=== PATIENT | female | born 1985 | race Caucasian/White ===

== ENCOUNTER 2019-09-23 03:02 | Outpatient (CLI) | payer OTHER, SELFPAY ==
[2019-09-24 20:06] LABS: SARS-CoV-2 RNA PCR Negative
== END 2019-09-23 03:03 | disposition home or self-care (01) ==
LOC: ANHCOVIDDT 03:02
PROVIDERS: PCP Family Medicine Adolescent Medicine; Visit Provider Plastic Surgery
DX: Z01.818 Encounter for other preprocedural examination (principal); Z11.59 Encounter for screening for other viral diseases
CPT/HCPCS: 87635; C9803; U0003

== ENCOUNTER 2019-09-25 02:21 | Day surgery (SDC) | payer OTHER, SELFPAY ==
[2019-09-16 14:00] VITALS: BMI 26.9
--- NOTE | 2019-09-24 12:46 | WPDANESEPPF ---
Anes - Initial Pre Proc Eval Procedure: Operation Date: 09/25/19 07:30 Proposed Procedures p Right Open Carpal Tunnel Release - Bryan Cabrales MD Date/Time: 09/24/19 12:46 Surgeon: Bryan Cabrales MD Pre Op Diagnosis: Right Carpal Tunnel Syndrome Patient Data Age: 34 Gender: F Height: 1.6 m Weight: 69.09 kg Allergies Allergy/AdvReac Type Severity Reaction Status Date / Time No Known Allergies Allergy Unknown Unverified 09/25/19 06:21 Home Medications Medication Instructions Recorded Confirmed Type levothyroxine 75 mcg PO DAILY 09/16/19 09/25/19 History Patient hx anesthesia problems: none Family hx anesthesia problems: none [facility] Past Medical History Medical History (Updated 09/24/19 @ 12:47 by Db Cook MD) Hypothyroidism Overweight (BMI 25.0-29.9) Surgical History Surgical History (Updated 09/24/19 @ 12:47 by Db Cook MD) Hx of cholecystectomy Hx of tubal ligation Social History Social History Smoking status: Current every day smoker Tobacco type: cigarettes Second hand tobacco smoke exposure: Yes Alcohol intake: never Substance use: never Living arrangements: with family Spiritual care concerns: No Anes - Eval Final PreProcedure Day of Procedure 09/24/19 12:46 Patient weight: overweight Heart: regular rate and rhythm Lungs: clear to auscultation and normal air movement Airway: Mallampati scale class II Neurological: alert and oriented Last oral intake: >/= 8 hours ASA classification: II Emergent: no Anesthetic plan: proceed Anesthesia type and monitoring: general GIVS and LMA Informed Consent: The patient's anesthetic plan and its attendant risks and benefits were discussed with the patient/family/POA. Questions were solicited and answers provided to the satisfaction of the patient/family/POA.
--- NOTE | 2019-09-24 22:13 | HP_ITS ---
DATE OF SERVICE: 09/25/2019 PREOPERATIVE DIAGNOSIS: Right carpal tunnel syndrome. HISTORY: The patient is 34. She was initially evaluated on , giving a history of 2 years involving pain and numbness in her right hand, particularly the middle finger. She frequently drops things. She is awakened at night. 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 She has cramping in the hand and all of this interferes with tasks of daily living. She has consented to surgery understanding there is a potential risk of scarring, hematoma, infection, wound dehiscence, recurrence, tendon or nerve injury. She would like to proceed. PAST MEDICAL HISTORY: She uses Synthroid. ALLERGIES: SHE HAS NO KNOWN ALLERGIES TO MEDICATION. PAST SURGICAL HISTORY: She has had a cholecystectomy and a tubal ligation in 2017 and 2019 respectively. She continues to be a smoker. REVIEW OF SYSTEMS: Indicates that she has some thyroid problem. . FAMILY HISTORY: Noncontributory. SOCIAL HISTORY: She lives in [place]. She does not list employment. She is a patient of Dequan Lopez. PHYSICAL EXAMINATION: GENERAL: She is listed at 5 feet 3 inches, 155 pounds. She is alert and informative, is in no acute distress. HEENT: Unremarkable. CHEST: Clear to auscultation. HEART: Regular rate and rhythm by palpation. ABDOMEN: Soft and nontender. EXTREMITIES: Exam reveals multiple positives including thenar tenderness and Tinel's at the wrist and wrist compression test with numbness. ASSESSMENT: Right carpal tunnel syndrome. PLAN: Right open carpal tunnel release under MAC anesthetic. She says she can tolerate hydrocodone. D I MT: Jose
[2019-09-25 06:15] VITALS: BP 112/69; PULSE 80; RESP 20; TEMP 36.7; O2SAT 100
[2019-09-25] MEDS: LACTATED RINGERS 1,000 ML 30 ML IV CONT (06:53)
--- NOTE | 2019-09-25 07:13 | WPDHPUPDATE1 ---
History and Physical Update Update Date/Time: 09/25/19 07:13 History and Physical has been reviewed, including an updated exam of the patient. There are NO changes in the patient's condition. Risks, benefits, and alternatives have been discussed and questions answered. Patient agrees to proceed with procedure.
[2019-09-25] MEDS: LIDO 1%/EPINEPHRINE 1:100,000 20 ML VIAL INFILTRATE (07:39)
--- NOTE | 2019-09-25 07:47 | P.OPB_ITS ---
Procedure Note - Brief Procedure Note - Brief Date of procedure: 09/25/19 Pre-op diagnosis: Right Carpal Tunnel Syndrome Post-op diagnosis: same Procedure performed: R OCTR Anesthesia: MAC Surgeon: Bryan Cabrales MD Wireless Retail Manager: Kaelyn Estimated blood loss (mL): 3 Tourniquet time (min): 5 Drains: No Packing: No Pathology: none sent Complications: No immediate complications Condition: stable Disposition: same day
[2019-09-25 07:50] VITALS: BP 98/63; PULSE 73; RESP 16
[2019-09-25 08:20] VITALS: BP 101/59; PULSE 63; RESP 16; O2SAT 97
[2019-09-25 08:50] VITALS: BP 102/62; PULSE 68; RESP 62
--- NOTE | 2019-09-25 10:23 | PM.PROC ---
Procedure Note - Detailed Date of procedure: 09/25/19 Pre-op diagnosis: Right Carpal Tunnel Syndrome Post-op diagnosis: same Procedure performed: Right open carpal tunnel release Description of procedure: the appropriate hand was marked while the patient was in the holding area. She was taken to the operating room and placed supine on the operating table. A time-out was held and confirmed. She was given IV sedation as the extremity was prepped and draped in usual fashion. The site was remarked and locally infiltrated with 1% lidocaine with epinephrine. The tourniquet was inflated to 250 mmHg. The incision was made in the palm as marked. Blunt dissection revealed the palmar fascia. This was incised with a 15. Blade entering the canal. Under 3 point retraction the carpal ligament was incised distally and proximally to completely release it. There was no unusual anatomy noted. The wound was closed with interrupted 5 0 nylon suture. The usual bandage was applied tourniquet was released and she was discharged home with instructions in wound care and follow-up. She has a prescription for hydrocodone /APAP . Surgeon: Bryan Cabrales MD
== END 2019-09-25 08:57 | disposition home or self-care (01) ==
PROVIDERS: PCP Family Medicine Adolescent Medicine; Visit Provider Plastic Surgery
PROC: (CPT 64721; principal; 2019-09-25 07:30)
DX: G56.01 Carpal tunnel syndrome, right upper limb (principal); E03.9 Hypothyroidism, unspecified; F17.210 Nicotine dependence, cigarettes, uncomplicated
CPT/HCPCS: 64721; A9270; J2250; J2704; J3010; J7120

== ENCOUNTER 2019-10-04 13:33 | Emergency (ER) | payer OTHER, SELFPAY ==
--- NOTE | ~2019-10-04 | XR_ITS ---
EXAMINATION: XR foot LT min 3V DATE: 10/04/2019 13:58 INDICATION: Left foot pain, initial encounter TECHNIQUE: Dorsoplantar, lateral, and 2 oblique views of the left foot were obtained. COMPARISON: None. FINDINGS: There is an acute, traumatic, comminuted fracture of the fifth proximal phalanx. Soft tissu e swelling surrounds the fracture. No additional acute osseous findings are evident. The joint spaces are maintained. IMPRESSION: 1. Acute fifth proximal phalanx fracture with surrounding soft tissue swelling. Reviewed, dictated and finalized at location B.
[2019-10-04 13:43] VITALS: BP 128/76; PULSE 89; RESP 16; TEMP 37.3; O2SAT 98
--- NOTE | 2019-10-04 13:44 | ED.GENADULT ---
HPI - General Adult General Chief complaint: Extremity Injury, Lower Stated complaint: injury left foot pain Source: patient and RN notes reviewed Mode of arrival: ambulatory Limitations: no limitations History of Present Illness HPI narrative: This is a 34 years old female presents to the office for an evaluation of left foot injury since this morning. She accidentally dropped a heavy object on her left foot at around 7am this morning. Pain is getting worse overtime. Pain is worse when she walks/moves her toes. She took tylenol and tramadol for pain. She recently had carpal tunnel surgery for her right hand. Denies any other injurys. Related Data Home Medications Medication Instructions Recorded Confirmed levothyroxine 75 mcg PO DAILY 09/16/19 09/25/19 Allergies Allergy/AdvReac Type Severity Reaction Status Date / Time No Known Allergies Allergy Unknown Unverified 09/25/19 06:21 Review of Systems Review of Systems: Narrative: CONSTITUTIONAL: Denies fever ENT: Denies rhinorrhea, congestion, sore throat, otalgia. CARDIOVASCULAR: Denies chest pain, palpitation RESPIRATORY: Denies dyspnea, wheezing, cough GASTROINTESTINAL: Denies abdominal pain, nausea, vomiting, diarrhea. SKIN: Denies rash/skin abrasion/laceration MUSCULOSKELETAL: Reports right foot injury and swelling. NEUROLOGIC: Denies lightheaded All other systems reviewed are negative, except as documented in HPI. PMFSH Past Medical History Medical History Hypothyroidism Overweight (BMI 25.0-29.9) Surgical History Surgical History Hx of cholecystectomy Hx of tubal ligation Social History Social History Smoking status: Current every day smoker Tobacco type: cigarettes Second hand tobacco smoke exposure: Yes Alcohol intake: never Substance use: never Spiritual care concerns: No Comments At time of signature, I agree with nursing past medical, surgical, social and family history. There is no relevant family history pertinent to the presenting complaint. Exam Narrative: Exam Narrative: GENERAL: This is a well-nourished, well-developed patient, in no apparent distress. CARDIOVASCULAR: Regular rate and rhythm without murmurs, gallops, or rubs. RESPIRATORY: Clear to auscultation. Breath sounds equal bilaterally. No wheezes, rales, or rhonchi. GASTROINTESTINAL: Abdomen soft, non-tender, nondistended. Bowel sounds are active. No hepato-splenomegaly, or palpable masses. No guarding. SKIN: warm, intact with no suspicious lesions or rash, good texture and turgor. NEURO: awake, alert, and oriented to person, place and time. There were no obvious focal neurologic abnormalities. Steady gait EXTREMITIES: Affected lateral ankle not swollen but there is tenderness and swelling over the dorsum of the foot at the fifth metartarsal. Range of motion limited secondary to pain. No deformity. The skin is intact. Natalia Coma Scale Eye Opening: Spontaneous 4 Mckinney Coma Scale Motor: Obeys Commands 6 Mckinney Coma Scale Verbal: Oriented 5 Course Vital Signs Vital signs: Vital Signs Temperature 99.1 F 10/04/19 13:43 Pulse Rate 89 10/04/19 13:43 Respiratory Rate 16 10/04/19 13:43 Blood Pressure 128/76 10/04/19 13:43 Pulse Oximetry 98 10/04/19 13:43 Temperature 99.1 F 10/04/19 13:43 Pulse Rate 89 10/04/19 13:43 Respiratory Rate 16 10/04/19 13:43 Blood Pressure 128/76 10/04/19 13:43 Pulse Oximetry 98 10/04/19 13:43 Medical Decision Making MDM Narrative Medical decision making narrative: Discharge instructions reviewed with patient, as well as provided in writing per nursing staff. The instructions also include specific and strict return/GO TO THE ER as well as f/u information. All questions have been answered, and the patient deny any further questio
== END 2019-10-04 14:09 | disposition home or self-care (01) ==
PROVIDERS: Emergency Provider Nurse Practitioner; PCP Family Medicine Adolescent Medicine
DX: S92.515A Nondisplaced fracture of proximal phalanx of left lesser toe(s), initial encounter for closed fracture (principal); W20.8XXA Other cause of strike by thrown, projected or falling object, initial encounter; E03.9 Hypothyroidism, unspecified
CPT/HCPCS: 73630; 99213; G0463

== ENCOUNTER 2020-03-29 12:58 | Emergency (ER) | payer OTHER, SELFPAY ==
--- NOTE | 2020-03-29 13:03 | ED.GENADULT ---
HPI - General Adult General Chief complaint: Upper Respiratory Infection Stated complaint: sore throat Time Seen by Provider: 03/29/20 13:03 Source: patient Mode of arrival: ambulatory Limitations: no limitations History of Present Illness HPI narrative: 34-year-old female patient presents to the [facility] with complaints of a sore throat that started a little bit yesterday and is gotten increasingly worse today. Patient states that 2 of her children were diagnosed with strep last week. Patient states she has had strep before and tends to get it when her children do. Patient also reports that she has had some issues with her teeth and her supposed to be getting her teeth extracted but does have a little bit of dental pain to the bottom right side of the oral cavity. Patient states that the pain does radiate to the right ear. Denies any fevers, body aches or chills. Denies any coughing, chest pain or shortness of breath. Related Data Home Medications Medication Instructions Recorded Confirmed levothyroxine 75 mcg PO DAILY 03/29/20 03/29/20 Allergies Allergy/AdvReac Type Severity Reaction Status Date / Time No Known Allergies Allergy Unknown Verified 03/29/20 13:16 Review of Systems Review of Systems: Narrative: CONSTITUTIONAL: Denies fever, chills, or sweats. EYES: Denies visual changes, redness, or discharge. ENT: Denies rhinorrhea, congestion, positive sore throat, or otalgia. Positive right lower dental pain CARDIOVASCULAR: Denies chest pain, palpitations, or edema. RESPIRATORY: Denies cough or dyspnea. GASTROINTESTINAL: Denies abdominal pain, nausea, vomiting, or diarrhea. GENITOURINARY: Denies dysuria or hematuria. SKIN: Denies rash or itching. MUSCULOSKELETAL: Denies back pain, joint pain, or myalgia. NEUROLOGIC: Denies headache, numbness, or weakness. PSYCHIATRIC: Denies anxiety or depression. [facility] Past Medical History Medical History (Updated 03/29/20 @ 13:37 by EVELINE Jerome) History of calculus of gallbladder History of carpal tunnel syndrome Hypothyroidism Overweight (BMI 25.0-29.9) Surgical History Surgical History Hx of cholecystectomy Hx of tubal ligation Social History Social History (Reviewed 03/29/20 @ 13:03 by REINA Jerome Smoking status: Current every day smoker Tobacco type: cigarettes Second hand tobacco smoke exposure: Yes Alcohol intake: never Substance use: never Gender identity (if verbalized by the patient): Female Spiritual care concerns: No Comments At the time of my signature I agree with nursing past medical history, surgical, social, and family history. There is no relevant family history pertinent to the presenting complaint. Exam Narrative: Exam Narrative: GENERAL: Well-appearing, well-nourished, and in no acute distress. HEAD: Normocephalic, atraumatic. EYES: PERRLA and EOMI. ENT: Nares clear, no rhinorrhea or epistaxis. Mucous membranes moist. Posterior pharynx with some 2+ tonsil enlargement erythema noted to bilateral sides. Bilateral TMs are clear no erythema or foreign bodies in the canal. Patient does have some missing teeth to the bottom right gums with swelling and tenderness on palpation but no obvious abscess or drainage at this time. NECK: Supple. No lymphadenopathy CHEST: Clear to auscultation. No respiratory distress. HEART: Regular rate and rhythm. No murmur heard. Normal peripheral pulses. ABDOMEN: Soft, nontender, nondistended, normal active bowel sounds. EXTREMITIES: Normal range of motion. No edema. SKIN: Warm, dry, no rash. NEURO: No focal deficits. Alert and oriented x3. Course Reevaluation(s) Reevaluation #1: Reevaluated patient after her strep had resulted. Notified her that her bedside strep test is negative today. Discussed with patient that I am concerned that she might also have a dental infection therefore we will go ahead and discharge her home wit
[2020-03-29 13:26] VITALS: BP 124/69; PULSE 85; RESP 16; TEMP 36.8; O2SAT 99
== END 2020-03-29 13:40 | disposition home or self-care (01) ==
PROVIDERS: Emergency Provider Nurse Practitioner Family; PCP Family Medicine Adolescent Medicine
DX: K04.7 Periapical abscess without sinus (principal); J02.9 Acute pharyngitis, unspecified; F17.210 Nicotine dependence, cigarettes, uncomplicated; E03.9 Hypothyroidism, unspecified
CPT/HCPCS: 87081; 87880; 99213; G0463

== ENCOUNTER 2020-05-01 16:38 | Emergency (ER) | payer OTHER, SELFPAY ==
--- NOTE | 2020-05-01 16:50 | ED.SKABFB ---
HPI - Skin/Abscess/Foreign Bdy General Chief complaint: Skin/Abscess/Foreign Body Stated complaint: rash Time Seen by Provider: 05/01/20 16:50 Source: patient and RN notes reviewed Mode of arrival: ambulatory Limitations: no limitations History of Present Illness HPI narrative: 34-year-old female presents to [facility] with complaints of a rash to the knee area of her left leg. Patient reports that the area became red and inflamed yesterday. Thinks it might be related to the tanning bed that she used on Monday. Multiple red raised circular areas with surrounding red tissue measuring a total of 7 cm in the longest area. Not circumferential. Each of the small nickel size areas have a center scab Denies fevers. Related Data Home Medications Medication Instructions Recorded Confirmed levothyroxine 75 mcg PO DAILY 03/29/20 03/29/20 Allergies Allergy/AdvReac Type Severity Reaction Status Date / Time No Known Allergies Allergy Unknown Verified 03/29/20 13:16 Review of Systems Review of Systems: Narrative: CONSTITUTIONAL: Denies fever, chills, or sweats. EYES: Denies visual changes, redness, or discharge. ENT: Denies rhinorrhea, congestion, sore throat, or otalgia. CARDIOVASCULAR: Denies chest pain, palpitations, or edema. RESPIRATORY: Denies cough or dyspnea. GASTROINTESTINAL: Denies abdominal pain, nausea, vomiting, or diarrhea. GENITOURINARY: Denies dysuria or hematuria. SKIN: Denies rash or itching. Red inflamed areas left knee MUSCULOSKELETAL: Denies back pain, joint pain, or myalgia. NEUROLOGIC: Denies headache, numbness, or weakness. PSYCHIATRIC: Denies anxiety or depression. All other systems reviewed are negative, except as documented in HPI. [facility] Past Medical History Medical History (Updated 05/01/20 @ 17:01 by Liz Martins) History of calculus of gallbladder History of carpal tunnel syndrome Hypothyroidism Overweight (BMI 25.0-29.9) Surgical History Surgical History Hx of cholecystectomy Hx of tubal ligation Social History Social History Smoking status: Current every day smoker Tobacco type: cigarettes Second hand tobacco smoke exposure: Yes Alcohol intake: never Substance use: never Gender identity (if verbalized by the patient): Female Spiritual care concerns: No Comments At the time of my signature, I reviewed and agree with the nursing past medical, surgical, social, and family history. There is no relevant family history pertinent to the patient complaint. Exam Narrative: Exam Narrative: GENERAL: This is a well-nourished, well-developed patient, in no apparent distress. HEAD: normocephalic, atraumatic. EYES: PERRL. Sclera clear/white. Vision is grossly intact. EARS: External ears normal, NECK: Neck supple, non-tender without lymphadenopathy, masses or thyromegaly. CARDIOVASCULAR: Regular rate and rhythm without murmurs, gallops, or rubs. RESPIRATORY: Clear to auscultation. Breath sounds equal bilaterally. No wheezes, rales, or rhonchi. SKIN: warm, intact. Red raised nickel size areas on the lateral and medial area of knee, surrounding tissue red inflamed, warm to touch NEURO: awake, alert, and oriented to person, place and time. There were no obvious focal neurologic abnormalities. EXTREMITIES: No clubbing, cyanosis. No joint tenderness, effusion, or edema noted. Course Vital Signs Vital signs: Vital Signs Temperature 98.4 F 05/01/20 16:53 Pulse Rate 85 05/01/20 16:53 Respiratory Rate 18 05/01/20 16:53 Blood Pressure 130/73 05/01/20 16:53 Pulse Oximetry 100 05/01/20 16:53 Temperature 98.4 F 05/01/20 16:53 Pulse Rate 85 05/01/20 16:53 Respiratory Rate 18 05/01/20 16:53 Blood Pressure 130/73 05/01/20 16:53 Pulse Oximetry 100 05/01/20 16:53 Reviewed within defined limits MDM - Skin/Abscess/Foreign Bdy MDM Narrative Medical d
[2020-05-01 16:53] VITALS: BP 130/73; PULSE 85; RESP 18; TEMP 36.9; O2SAT 100
== END 2020-05-01 17:06 | disposition home or self-care (01) ==
PROVIDERS: Emergency Provider Nurse Practitioner; PCP Family Medicine Adolescent Medicine
DX: L03.115 Cellulitis of right lower limb (principal); S80.861A Insect bite (nonvenomous), right lower leg, initial encounter; W57.XXXA Bitten or stung by nonvenomous insect and other nonvenomous arthropods, initial encounter; F17.210 Nicotine dependence, cigarettes, uncomplicated; E03.9 Hypothyroidism, unspecified
CPT/HCPCS: 99213; G0463

== ENCOUNTER 2021-09-22 09:07 | Outpatient (CLI) | payer OTHER, SELFPAY ==
--- NOTE | 2021-09-22 11:30 | NEURO_ITS ---
Impression: # Complains of left hand numbness. # Evolving left Carpal Tunnel Syndrome. # No ulnar neuropathy. # Needle/EMG exam not requested. Nerve Conduction Studies Anti Sensory Summary Table Stim Site NR Peak (ms) P-T Amp (?V) Site1 Site2 Delta-P (ms) Dist (cm) Epifanio (m/s) Left Median Anti Sensory (2-3nd Digit) Wrist 3.2 51.5 Wrist 2-3nd Digit 3.2 14.0 44 Wrist 3.2 76.5 Wrist 2-3nd Digit 3.2 14.0 44 Left Radial Anti Sensory (Base 1st Digit) Wrist 2.0 34.0 Wrist Base 1st Digit 2.0 0.0 Left Ulnar Anti Sensory (5th Digit) Wrist 2.2 88.6 Wrist 5th Digit 2.2 14.0 64 Motor Summary Table Stim Site NR Onset (ms) O-P Amp (mV) Site1 Site2 Delta-0 (ms) Dist (cm) Epifanio (m/s) Left Median Motor (Abd Poll Brev) Wrist 3.4 3.2 Elbow Wrist 4.9 28.0 57 Elbow 8.3 3.4 Left Ulnar Motor (Abd Dig Minimi) Wrist 2.3 9.3 A Elbow Wrist 5.0 28.0 56 A Elbow 7.3 8.4 F Wave Studies NR F-Lat (ms) L-R F-Lat (ms) Left Median (Mrkrs) (Abd Poll Brev) 26.84 Left Ulnar (Mrkrs) (Abd Dig Min) 26.88 MTDD
== END 2021-09-22 09:08 | disposition home or self-care (01) ==
LOC: ANHNEURO 09:09
PROVIDERS: PCP Family Medicine Adolescent Medicine; Visit Provider Plastic Surgery
DX: R20.0 Anesthesia of skin (principal); G56.02 Carpal tunnel syndrome, left upper limb
CPT/HCPCS: 95909

== ENCOUNTER 2022-01-24 12:53 | Outpatient (CLI) | payer OTHER, SELFPAY | END 2022-01-24 12:54 | disposition home or self-care (01) | LOC: ANHSURGERY 12:55 | PROVIDERS: PCP Family Medicine Adolescent Medicine; Visit Provider Obstetrics & Gynecology | DX: N81.4 Uterovaginal prolapse, unspecified (principal); Z01.818 Encounter for other preprocedural examination | CPT/HCPCS: 36415; 86850; 86900; 86901 ==

== ENCOUNTER 2022-01-27 00:31 | Day surgery (SDC) | payer OTHER, SELFPAY ==
[2022-01-17 11:03] VITALS: BMI 28.5
--- NOTE | 2022-01-17 11:07 | PC.NURSE ---
Report to the Outpatient Waiting Room, entrance under the green pavilion located off [facility], at time 7:30 on date 01/27/22. Planned Procedure Time: 9:30. Time changes happen often and if your time is changed the preop area will call you the afternoon before. - You and your visitor will be asked to self-screen and do not enter if you have any COVID symptoms. - Only one visitor is requested with a max of two and NO children visitors are allowed at this time. - The patient visitor may be requested to leave or wait in car when not with patient due to distancing restrictions. - A mask is optional within the hospital. Patients may have clear liquids (water, carbonated beverages, clear teas, apple juice) until 3 hours prior to surgery (6:30) with a maximum of 20 ounces. - No food from midnight until time of surgery Take the following medications with a SIP of water the morning of surgery: LEVOTHYROXINE, TRAMADOL IF NEEDED Medications to discontinue per physician: N/A Date to take last dose: N/A Please no make-up, nail iranian, hairspray, perfume, deodorant, or body powder the day of surgery. No jewelry (including any body piercings) or valuables the day of surgery, leave them at home. Please take a shower or bath the night before, or the morning of, surgery with an antibacterial soap. Wear comfortable, loose fitting clothing. - Jewelry must be removed prior to entering the operating room. Rings and piercings that are not removed may be cut off. - The hospital will not accept responsibility for valuables. - Please leave all valuables, including medications, at home the day of surgery. If you are going home after surgery, a licensed driver lifter of sanitation truck must drive you home. - NO public transportation without another adult if you receive anesthesia. - We recommend that an adult stay with you for 24 hours following discharge. - We also recommend that you do not drive, make important decision, drink alcoholic beverages, or take any drugs that were not prescribed by your health care provider for at least 24 hours after your discharge time. Follow any additional instructions given to you from your surgeon. If you or anyone in your household have experienced Covid symptoms in the past week, please notify your surgeon or the nurse liaison at the phone number below for possible testing. Telephone instructions given to PT Pepe ARNOLD and asked if any additional questions and then verbalized understanding. Patient advised to call surgeon office or pre surgery nurse liaison [phone] if any additional questions.
--- NOTE | 2022-01-26 09:02 | PM.IMHP ---
H&P: HPI History of Present Illness Date/Time: 01/26/22 09:02 36-year-old 6 para 5005 female presents with complaints of heavy vaginal bleeding clotting and cramping. Cycles are coming on a monthly basis not lasting 5-7 days with 3-4 days very heavy with clotting to the point where she is and able to perform some of her activities of daily living. Also pelvic pressure and fullness which does increase with activities, also increased discomfort with intercourse. Ultrasound was performed revealed a mildly enlarged uterus with no specific abnormalities in both adnexa without abnormality. Multiple options were discussed and she desires to proceed with hysterectomy with ovarian preservation. Chief Complaint: Menometrorrhagia Review of Systems Review of Systems: All systems reviewed & are unremarkable except as noted in HPI and below PMFSH Past Medical History Medical History Abnormal Pap smear of cervix 2003 ASCUS +hpv 2004 colposcopy benign/ 2005 ASCUS+HPV/ CTS (carpal tunnel syndrome) surgery right hand History of calculus of gallbladder History of carpal tunnel syndrome HPV in female Hypothyroidism Overweight (BMI 25.0-29.9) Surgical History Surgical History History of colposcopy with cervical biopsy (~2004) benign History of dilation and curettage 08/11/04 suction d&c--incomplete AB Hx of cholecystectomy Hx of tubal ligation (02/28/19) Family History Family History Father Acute myocardial infarction Colon polyp Heart disease Hypertension Carcinoma of colon Mother Asthma Diabetes mellitus Hypertension Sibling Diabetes mellitus Social History Social History Smoking packs per day: 0.5 Smoking cigarettes per day: 10.0 Years smoked: 15 Smoking pack-years: 7.50 Smoking status: Current every day smoker Tobacco type: cigarettes Second hand tobacco smoke exposure: Yes Alcohol intake: current Drinks per week: 1 Alcohol use details: 1/MONTH Substance use: never Substance use type: does not use Additional living arrangements comments: 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 Gender identity (if verbalized by the patient): Female Sexual Orientation (if Verbalized by the Patient): Straight or Heterosexual Spiritual care concerns: No Agree to blood products: Yes Meds Home Medications and Allergies Home Medications Medication Instructions Recorded Confirmed Type tramadol 50 mg tablet 50 mg PO Q6H PRN pain #30 tabs 12/07/21 01/17/22 Rx levothyroxine 75 mcg tablet 75 mcg PO DAILY #30 tabs 12/31/21 01/17/22 Rx Allergies Allergy/AdvReac Type Severity Reaction Status Date / Time codeine AdvReac Unknown Nausea Verified 01/17/22 11:03 Exam Const: General: cooperative, healthy appearing and comfortable Resp: Effort & Inspection: normal respiratory effort Auscultation: clear to auscultation bilaterally Cardio: Rate: regular rate Rhythm: regular rhythm GI: Inspection: normal to inspection Auscultation: normal bowel sounds : External Female Exam: normal external appearance Speculum Exam - Vagina: normal appearance of the vagina Speculum Exam - Cervix: normal appearance of the cervix Bimanual exam- vagina & uterus: enlarged (10-12 week size/ prolapse to introitus) and Uterine tenderness Bimanual Exam- Adnexa, other: normal adnexae Assessment and Plan Assessment and plan (1) Uterine prolapse: Code(s): N81.4 - Uterovaginal prolapse, unspecified Status: Acute (2) Menometrorrhagia: Code(s): N92.1 - Excessive and frequent menstruation with irregular cycle Status: Acute (3) Dyspareunia: Status: Acute Plan 1. Proceed with robotic assisted laparoscopic total hyst
[2022-01-27] VITALS (11 sets, daily range): BP systolic 99–117; BP diastolic 59–85; PULSE 61–91; RESP 10–18; TEMP 36.2–36.9; O2SAT 94–100; BMI 29.9
[2022-01-27] MEDS: LACTATED RINGERS 1,000 ML 30 ML IV CONT ×2 (06:34→09:20)
[2022-01-27] MEDS: ACETAMINOPHEN 500 MG TABLET 1000 MG PO (06:38)
[2022-01-27] MEDS: KETOROLAC 15 MG/ML VIAL (*BKC) IV PUSH (06:38)
--- NOTE | 2022-01-27 07:20 | WPDHPUPDATE1 ---
History and Physical Update Update Date/Time: 01/27/22 07:20 History and Physical has been reviewed, including an updated exam of the patient. There are NO changes in the patient's condition. Risks, benefits, and alternatives have been discussed and questions answered. Patient agrees to proceed with procedure.
[2022-01-27] MEDS: ceFAZolin 2 GM/D5W 50 ML 2 GM/50 ML BAG IVPB (07:28)
--- NOTE | 2022-01-27 08:43 | W.PM.PROC2 ---
Procedure Note - Detailed Date of Procedure 01/27/22 Pre-op Diagnosis 1. Uterine prolapse 2. Menometrorrhagia 3. Dyspareunia Post-op Diagnosis Same Procedure Performed 1. Robotic assisted laparoscopic total hysterectomy with ovarian preservation Surgeon Jorge A Iniguez MD Anesthesia General Findings Mildly enlarged uterus. Ovaries without abnormality. Short tubal/fimbriated edges noted. Description of Procedure Patient prepped in usual manner for this procedure. Cervical instruments placed for uterine mobility. Abdominal trocar sites were placed under direct visualization and the CONWEAVER Jareth system was attached and instruments placed. Thorough evaluation of pelvis revealed findings as noted above. Initial portion of the procedure mesial salpinx was cauterized and these short tubal segments removed. This was followed by utero-ovarian ligament and cauterized and cut round ligament cauterized and cut and the bladder flap developed. Posterior leaf of the broad ligament was also incised to skeletonize the uterine vessels. Once these were skeletonized and were cauterized and cut with hemostasis achieved. Anterior colpotomy incision was made this was carried circumferentially to separate the cervix from the vagina. Uterus was delivered into the vagina and this suture was then used to approximate the vaginal cuff beginning from the right angle to midline and left angle to the midline. Good hemostasis had been achieved. Irrigation was undertaken there was no bleeding. Areli appear clear with placed over the uterine incision. Gas was allowed to escape, incisions approximated using 4-0 Monocryl after the trocars removed. Patient was then sent to recovery room in stable condition. Estimated Blood Loss 50 Drains No Packing No Pathology Yes Complications No immediate complications Condition Stable Disposition PACU [facility] Billing Surgery - Charge Forward: Surgery Billing
[2022-01-27] MEDS: fentaNYL CITRATE INJ (*CRX) 100 MCG/2 ML VIAL 25 MCG IV PUSH ×4 (09:18→09:55)
--- NOTE | 2022-01-27 10:59 | ADMGEN ---
1020-This patient, Sonam Mcclendon, was admitted to OB 2nd Floor Room 292-00. Patient/family oriented to hospital policies and general routines including ID bracelet, bed and alarms, visiting hours, pain management, procedures, bathroom and other care routines, personal items, smoking policy, room service/diet, and visiting hours. Information on how to activate the Rapid Response Team has been discussed. Patient/Family are encouraged to report perceived risks to care and to ask questions if they do not understand what they are told or what they should do.
[2022-01-27] MEDS: DEXTROSE 5%/0.45% SOD CHL 1,000 ML 125 ML IV CONT (11:02)
[2022-01-27] MEDS: diphenhydrAMINE HCl INJ 50 MG/ML VIAL 25 MG IV PUSH (11:19)
[2022-01-27] MEDS: IBUPROFEN 600 MG TABLET PO ×2 (14:42→19:43)
[2022-01-27] MEDS: HYDROcodone/acetaminophen (*CRX) 5-325 MG TABLET 1 TAB PO ×2 (14:43→21:10)
[2022-01-28 05:05] VITALS: BP 110/72; PULSE 78; RESP 16; TEMP 36.4
[2022-01-28] MEDS: IBUPROFEN 600 MG TABLET PO (05:05)
[2022-01-28 05:36] LABS: Basophils Percent Auto 0.2 % (0.2-1.2); Eosinophils Percent Auto 0.1 % (0-4.4); Hematocrit 41.4 % (37.0-47.0); Hemoglobin 13.4 g/dL (12.0-15.0); Immature Granulocyte Absolute 0.14 K/mm3 (0.00-0.031); Immature Granulocyte Percent A 0.7 % (0-0.5); Lymphocytes Absolute Auto 2.68 K/mm3 (0.9-3.2); Lymphocytes Percent Auto 13.8 % (18.3-44.2); Mean Corpuscular HGB Conc 32.4 g/dl (32-36); Mean Corpuscular Volume 95.8 fl (80-100); Mean Platelet Volume 9.7 fl (7.4-10.4); Monocytes Percent Auto 5.3 % (2.6-8.5); Neutrophils Absolute Auto 15.5 K/mm3 (1.3-6.7); Neutrophils Percent Auto 79.9 % (45.5-73.1); Platelet Count Result 321 k/mm3 (150-375); Red Blood Count 4.32 M/mm3 (4.2-5.4); Red Cell Distribution Width 13.3 % (11.5-14.5); White Blood Count 19.4 K/mm3 (4.5-10.0)
[2022-01-28 08:30] VITALS: PULSE 76; RESP 18; O2SAT 97
[2022-01-28] MEDS: LEVOTHYROXINE SODIUM 75 MCG TABLET PO (08:56)
[2022-01-28] MEDS: SIMETHICONE 80 MG TAB.CHEW PO (08:56)
[2022-01-28] MEDS: HYDROcodone/acetaminophen (*CRX) 5-325 MG TABLET 1 TAB PO (08:57)
[2022-01-28 09:00] VITALS: BP 104/56; PULSE 76; RESP 18; TEMP 37.3; O2SAT 97
== END 2022-01-28 09:05 | disposition home or self-care (01) ==
LOC: ANHSURGERY 05:53 → ANHOB2 10:18
PROVIDERS: PCP Family Medicine Adolescent Medicine; Visit Provider Obstetrics & Gynecology
PROC: (CPT 58571; principal; 2022-01-27 07:30)
DX: N81.4 Uterovaginal prolapse, unspecified (principal); N92.1 Excessive and frequent menstruation with irregular cycle; N94.10 Unspecified dyspareunia; N87.9 Dysplasia of cervix uteri, unspecified; N83.8 Other noninflammatory disorders of ovary, fallopian tube and broad ligament; E03.9 Hypothyroidism, unspecified; F17.210 Nicotine dependence, cigarettes, uncomplicated
CPT/HCPCS: 58571; 36415; 85025; 88307; 99199; A9270; J0690; J1100; J1170; J1200; J1885; J2250; J2405; J2704; J2710; J3010; J7030; J7120

== ENCOUNTER 2022-04-02 11:19 | Emergency (ER) | payer OTHER, SELFPAY ==
[2022-04-02 11:31] VITALS: BP 124/80; PULSE 91; RESP 16; TEMP 36.8; O2SAT 99
--- NOTE | 2022-04-02 12:30 | ED.URI ---
HPI - URI/Sore Throat General Chief Complaint: Upper Respiratory Infection Stated Complaint: cough Time Seen by Provider: 04/02/22 12:30 Source: RN notes reviewed and old records reviewed Mode of arrival: ambulatory Limitations: no limitations History of Present Illness HPI Narrative: 36 year old female who presents to [facility] care with complaints of cough for the past 4 days and loss of voice for the past 2 days. Patient reports that she she feels OK otherwise denies any body aches or any fevers. Patient reports that father in law has similar symptoms and was diagnosed with bronchitis. Patient is around children does not know of any recent ill exposure from children. Patient reports that she has taken home COVID test which was negative MD elicited complaint: cough Onset (ago): day(s) (4) Able to tolerate fluids by mouth: Yes Treatments prior to arrival: none Related Data Allergies Allergy/AdvReac Type Severity Reaction Status Date / Time codeine AdvReac Unknown Nausea Verified 04/02/22 11:47 Review of Systems Review of Systems: CONSTITUTIONAL: Denies malaise, chills, sweats, or fever. EYES: Denies visual changes, redness, or discharge. ENT: Reports rhinorrhea, congestion,no sinus pain, no otalgia and no sore throat. CARDIOVASCULAR: Denies chest pain, palpitations, or edema. RESPIRATORY: Reports cough.? Denies dyspnea. GASTROINTESTINAL: Denies abdominal pain, nausea, vomiting, diarrhea SKIN: Denies rash or itching. MUSCULOSKELETAL: Denies myalgia. NEUROLOGIC: Denies headache. All systems reviewed & are unremarkable except as noted in HPI and below PMFSH Past Medical History Medical History Abnormal Pap smear of cervix 2003 ASCUS +hpv 2005 colposcopy benign/ 2005 ASCUS+HPV/ CTS (carpal tunnel syndrome) surgery right hand History of calculus of gallbladder History of carpal tunnel syndrome HPV in female Hypothyroidism Overweight (BMI 25.0-29.9) Surgical History Surgical History History of colposcopy with cervical biopsy (~2004) benign History of dilation and curettage 08/11/04 suction d&c--incomplete AB History of hysterectomy (01/27/22) RATLH with ovarian preservation Hx of cholecystectomy Hx of tubal ligation (02/28/19) Family History Family History Father Acute myocardial infarction Colon polyp Heart disease Hypertension Carcinoma of colon Pancreatic cancer, Onset Age: 62 stage 4 Mother Asthma Diabetes mellitus Hypertension Sibling Diabetes mellitus Social History Social History Smoking packs per day: 0.5 Smoking cigarettes per day: 10.0 Years smoked: 15 Smoking pack-years: 7.50 Smoking status: Current every day smoker Tobacco type: cigarettes Second hand tobacco smoke exposure: Yes Alcohol intake: current Drinks per week: 1 Alcohol use details: 1/MONTH Substance use: never Substance use type: does not use Living arrangements: with family Additional living arrangements comments: Occupation/Education: other 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 There is no relevant family history pertinent to the presenting complaint Exam Narrative: GENERAL: Well-appearing, well-nourished, and in no acute distress. HEAD: Normocephalic EYES: PERRLA, conjunctivae clear ENT: Nares clear, turbinates edematous and erythematous, clear discharge. Mucous membranes moist. TM pearly rosen with dull light reflex bi
== END 2022-04-02 12:53 | disposition home or self-care (01) ==
PROVIDERS: Emergency Provider Registered Nurse; PCP Family Medicine Adolescent Medicine
DX: J02.0 Streptococcal pharyngitis (principal); E03.9 Hypothyroidism, unspecified; F17.210 Nicotine dependence, cigarettes, uncomplicated
CPT/HCPCS: 87880; 99213; G0463

== ENCOUNTER 2022-10-19 00:58 | Day surgery (SDC) | payer OTHER, SELFPAY ==
[2022-10-11 14:41] VITALS: BMI 30.4
--- NOTE | 2022-10-11 14:46 | PC.NURSE ---
Report to the Outpatient Waiting Room, entrance under the green pavilion located off [facility], at time 0800 on date __10/19/22. Planned Procedure Time: __100__. Time changes happen often and if your time is changed the preop area will call you the afternoon before. - You and your visitor will be asked to self-screen and do not enter if you have any COVID symptoms. - A mask is optional within the hospital at this time. Patients may have clear liquids (water, carbonated beverages, clear teas, apple juice) until 3 hours prior to surgery with a maximum of 20 ounces. - No food from midnight until time of surgery - Infants may have breast milk until 4 hours before surgery, formula 6 hours prior to surgery. - Children will be allowed to drink immediately following surgery. If applicable, please bring a bottle or sippy cup to assist with drinking. Juice, water, soda, and popsicles are readily available. For infants on formula, please bring formula the day of surgery. Pacifiers are allowed. Take the following medications with a SIP of water the morning of surgery: LEVOTHYROXINE____ DO NOT STOP ANY OF YOUR OTHER PRESCRIPTION MEDICATIONS PRIOR TO SURGERY ?EXCEPT THE FOLLOWING Medications to discontinue per physician NONE Date to take last dose Please no make-up, nail sami, hairspray, perfume, deodorant, or body powder the day of surgery. No jewelry (including any body piercings) or valuables the day of surgery, leave them at home. Please take a shower or bath the night before, or the morning of, surgery with an antibacterial soap. Wear comfortable, loose fitting clothing. Children are encouraged to wear pajamas. - Jewelry must be removed prior to entering the operating room. Rings and piercings that are not removed may be cut off. - The hospital will not accept responsibility for valuables. - Please leave all valuables, including medications, at home the day of surgery. If you are going home after surgery, a licensed regional driver must drive you home. - NO public transportation without another adult if you receive anesthesia. - We recommend that an adult stay with you for 24 hours following discharge. - We also recommend that you do not drive, make important decision, drink alcoholic beverages, or take any drugs that were not prescribed by your health care provider for at least 24 hours after your discharge time. For Pediatric surgeries, we recommend two adults accompany the child home. Follow any additional instructions given to you from your surgeon. If you or anyone in your household have experienced Covid symptoms in the past week, please notify your surgeon or the nurse liaison at the phone number below for possible testing. Telephone instructions given to CONSTANZAand asked if any additional questions and then verbalized understanding. Patient advised to call surgeon office or pre surgery nurse liaison [phone] if any additional questions.
--- NOTE | 2022-10-19 07:13 | WPDHPUPDATE1 ---
History and Physical Update Update Date/Time: 10/19/22 07:13 History and Physical has been reviewed, including an updated exam of the patient. There are NO changes in the patient's condition. Risks, benefits, and alternatives have been discussed and questions answered. Patient agrees to proceed with procedure.
[2022-10-19 08:03] VITALS: BP 125/80; PULSE 88; RESP 16; TEMP 36.7; O2SAT 97
[2022-10-19] MEDS: LACTATED RINGERS 1,000 ML 30 ML IV CONT (08:08)
--- NOTE | 2022-10-19 10:01 | WPDANESEPPF ---
Anes - Initial Pre Proc Eval Procedure: Operation Date: 10/19/22 10:00 Proposed Procedures p Left Open Carpal Tunnel Release - Bryan Cabrales MD Date/Time: 10/19/22 10:01 Surgeon: Bryan Cabrales MD Pre Op Diagnosis: left carpal tunnel syndrome Patient Data Age: 37 Gender: F Height: 1.6 m Weight: 81.6 kg Last Vital Signs Temp 36.7 C 10/19/22 08:03 Pulse 88 10/19/22 08:03 Resp 16 10/19/22 08:03 BP 125/80 10/19/22 08:03 Pulse Ox 97 10/19/22 08:03 O2 Del Method Room Air 10/19/22 08:03 Allergies Allergy/AdvReac Type Severity Reaction Status Date / Time codeine AdvReac Unknown Nausea Verified 10/19/22 07:54 Home Medications Medication Instructions Recorded Confirmed Type levothyroxine 75 mcg tablet 75 mcg PO DAILY #30 tabs 12/31/21 10/11/22 Rx Patient hx anesthesia problems: none Family hx anesthesia problems: none Results Review: All pre-operative results and documents have been reviewed as part of the pre-operative evaluation. [facility] Past Medical History Medical History Abnormal Pap smear of cervix 2003 ASCUS +hpv 2004 colposcopy benign/ 2004 ASCUS+HPV/ CTS (carpal tunnel syndrome) surgery right hand History of calculus of gallbladder History of carpal tunnel syndrome HPV in female Hypothyroidism Overweight (BMI 25.0-29.9) Surgical History Surgical History History of colposcopy with cervical biopsy (~2004) benign History of dilation and curettage 08/11/04 suction d&c--incomplete AB History of hysterectomy (01/27/22) RATLH with ovarian preservation Hx of cholecystectomy Hx of tubal ligation (02/28/19) Family History Family History Father Acute myocardial infarction Colon polyp Heart disease Hypertension Carcinoma of colon Pancreatic cancer, Onset Age: 62 stage 4 Mother Asthma Diabetes mellitus Hypertension Sibling Diabetes mellitus Social History Social History Smoking packs per day: 0.5 Smoking cigarettes per day: 10.0 Years smoked: 20 Smoking pack-years: 10.00 Smoking status: Current every day smoker Tobacco type: cigarettes Second hand tobacco smoke exposure: Yes Alcohol intake: current Drinks per week: 1 Alcohol use details: 2 PER MONTH Substance use: never Substance use type: does not use Living arrangements: with family Additional living arrangements comments: Occupation/Education: other 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 Gender identity (if verbalized by the patient): Female Sexual Orientation (if Verbalized by the Patient): Straight or Heterosexual Spiritual care concerns: No Agree to blood products: Yes Anes - Eval Final PreProcedure Day of Procedure 10/19/22 10:01 Patient weight: obese Heart: regular rate and rhythm Lungs: clear to auscultation Airway: Mallampati scale class II Neurological: alert and oriented Last oral intake: >/= 8 hours ASA classification: III Emergent: no Anesthetic plan: proceed Anesthesia type and monitoring: general GIVS and standard monitoring Results Review: All pre-operative results and documents have been reviewed as part of the pre-operative evaluation. Informed Consent: The patient's anesthetic plan and its attendant risks and benefits were discussed with the patient/family/POA. Questions were solicited and answers provided to the satisfaction of the patient/family/POA.
[2022-10-19] MEDS: LIDO 1%/EPINEPHRINE/PF 1:200,000 30 ML VIAL 5 ML XX (10:28)
[2022-10-19 10:45] VITALS: BP 88/53; PULSE 76; RESP 12; O2SAT 94
--- NOTE | 2022-10-19 10:55 | W.PM.PROC2 ---
Procedure Note - Detailed Date of Procedure 10/19/22 Pre-op Diagnosis left carpal tunnel syndrome Post-op Diagnosis Same Procedure Performed Left open carpal tunnel release Surgeon Bryan Cabrales MD Anesthesia MAC Description of Procedure The left volar wrist was marked with the patient's consent in holding area. She was taken to the operating room she was placed supine on the operating table. She was given IV sedation as the extremity was prepped and draped in usual fashion. The site was marked for a left open carpal tunnel release. The site was locally infiltrated with 1% lidocaine with epinephrine. The extremity was exsanguinated and the tourniquet inflated to 250 mmHg. The incision was made as marked and the dissection was carried bluntly through the subcutaneous tissue to the palmar aponeurosis. This and the transverse retinaculum were incised with a 15. Blade. The ligament was divided distally and proximally under direct vision. There was no unusual anatomy noted. The skin was closed with interrupted 5 0 nylon suture. The tourniquet was released and she was discharged home with instructions in wound care and follow-up with our usual bandage. She has a prescription for hydrocodone 5/325 6. Sent to her pharmacy. Estimated Blood Loss 0 Drains No Packing No Pathology None sent Complications No immediate complications Condition Stable Disposition Same day
[2022-10-19 11:15] VITALS: BP 105/67; PULSE 63; RESP 16; O2SAT 97
[2022-10-19 11:45] VITALS: BP 116/74; PULSE 71; RESP 16
[2022-10-19 12:05] VITALS: BP 106/65; PULSE 58; RESP 16
== END 2022-10-19 12:05 | disposition home or self-care (01) ==
PROVIDERS: PCP Family Medicine Adolescent Medicine; Visit Provider Plastic Surgery
PROC: (CPT 64721; principal; 2022-10-19 10:00)
DX: G56.02 Carpal tunnel syndrome, left upper limb (principal); E03.9 Hypothyroidism, unspecified; F17.210 Nicotine dependence, cigarettes, uncomplicated; E66.9 Obesity, unspecified; Z68.31 Body mass index [BMI] 31.0-31.9, adult
CPT/HCPCS: 64721; A9270; J1100; J2250; J2405; J2704; J3010; J7120

== ENCOUNTER 2023-08-15 17:36 | Outpatient (CLI) | payer MEDICAID, SELFPAY ==
--- NOTE | ~2023-08-15 | XR_ITS ---
EXAM: XR foot RT 2V DATE: 08/15/2023 17:48 HISTORY: M72.2 - Plantar fascial fibromatosis . COMPARISON: 02/07/2013. FINDINGS: Normal mineralization. No fracture or dislocation. No lytic or blastic lesion. Mild degene rative change at the first MTP joint with mild hallux valgus. Mild Achilles and plantar enthesopathy. No erosion or periosteal change. Soft tissues within normal limits. 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 Mild Achilles and plantar enthesop athy. Reviewed, dictated and finalized at location K. 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 Mild Lauren s and plantar enthesopathy.
== END 2023-08-15 17:37 | disposition home or self-care (01) ==
LOC: ANHIMG 17:39
PROVIDERS: PCP Family Medicine Adolescent Medicine; Visit Provider Nurse Practitioner Family
DX: M79.671 Pain in right foot (principal); M72.2 Plantar fascial fibromatosis; M19.071 Primary osteoarthritis, right ankle and foot; M20.11 Hallux valgus (acquired), right foot; M77.31 Calcaneal spur, right foot
CPT/HCPCS: 73620

== ENCOUNTER 2024-07-10 19:40 | Emergency (ER) | payer OTHER, SELFPAY ==
[2024-07-10 19:52] VITALS: BP 143/96; PULSE 105; RESP 18; TEMP 36.6; O2SAT 98
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
== END 2024-07-10 20:14 | disposition home or self-care (01) ==
PROVIDERS: PCP Family Medicine Adolescent Medicine
DX: T23.251A Burn of second degree of right palm, initial encounter (principal); T23.121A Burn of first degree of single right finger (nail) except thumb, initial encounter; X19.XXXA Contact with other heat and hot substances, initial encounter; F17.210 Nicotine dependence, cigarettes, uncomplicated; E03.9 Hypothyroidism, unspecified
CPT/HCPCS: 99213; G0463